=== PATIENT | male | born 1995 | race African-American/Black ===

== ENCOUNTER 2018-01-31 00:44 | Emergency (ER) | payer OTHER, MEDICAID ==
[~2018-01-31] VITALS: Ht 177.8 cm; Wt 65.0 kg
[2018-01-31] MEDS ORDERED: BACITRACIN ZINC OINT UDPKT TOP ONE (02:45)
[2018-01-31 03:13] VITALS: BP 112/56
== END 2018-01-31 03:15 | disposition home or self-care (01) ==
LOC: ER 02:04
DX: S01.112A Laceration without foreign body of left eyelid and periocular area, initial encounter (principal); W21.81XA Striking against or struck by football helmet, initial encounter; Y93.61 Activity, american tackle football; Y92.89 Other specified places as the place of occurrence of the external cause; Y99.8 Other external cause status
CPT/HCPCS: 12011; 99283; Z7610